=== PATIENT | female | born 1995 | race Caucasian/White ===

== ENCOUNTER 2020-06-02 10:36 | Outpatient (CLI) | payer BC ==
--- NOTE | 2020-06-02 11:43 | RAD ---
XR Thoracic Spine 2 View History: Low back pain. Fracture. Comparison: Lumbar spine CT April 6020 Findings: No further height loss of the T12 and L1 compression deformities, better seen on the lumbar spine radiographs. No new acute superimposed fracture of the thoracic spine. Chronic inferior endplate height loss at T7 . Impression: No further height loss of the T12 or L1 compression deformities.
--- NOTE | 2020-06-02 11:44 | RAD ---
XR Lumbar Spine 2 Or 3 View History: Fractures Comparison: CT lumbar spine April 30, 2020 Findings: No further height loss at the T12 or L1 compression deformities of minimal height loss. No new compression fracture. No listhesis. Impression: No further height loss of the T12 or L1 compression deformities.
== END 2020-06-02 10:37 | disposition home or self-care (01) ==
LOC: TBSIIMAG 10:36
PROVIDERS: ATTEND Neurological Surgery
DX: M54.5 Low back pain (principal)
CPT/HCPCS: 72070; 72100

== ENCOUNTER 2020-06-30 10:05 | Outpatient (CLI) | payer BC | END 2020-06-30 10:06 | disposition home or self-care (01) | LOC: TBSIIMAG 10:05 | PROVIDERS: ATTEND Physician Assistant | DX: S32.009A Unspecified fracture of unspecified lumbar vertebra, initial encounter for closed fracture (principal) | CPT/HCPCS: 72100 ==